=== PATIENT | female | born 1965 | race Caucasian/White ===

== ENCOUNTER 2018-05-12 09:02 | Day surgery (SDC) | payer OTHER ==
[~2018-05-12] VITALS: Ht 157.5 cm; Wt 113.4 kg
[~2018-05-12 09:02] MED LIST: CALCIUM + D3 E1 EACH PO; CHOLESTYRAMINE R5 GM MISC; DOXYCYCLINE HY100 M3 PO; FAMOTIDINE40 MG PO; GLUCOPHAGE XR500 MG PO; GLUCOSAMINE CO1 EACH PO; LISINOPRIL10 MG PO; LOSARTAN POTASS50 MG PO; METROCREAM45 GM TOP; OMEPRAZOLE20 M1 PO; TURMERIC500 M1 PO; ULTRAM50 MG PO
--- NOTE | 2018-05-12 10:30 | NUR ---
05/12/18 1030 Mireya Jon 1020- PT ARRIVES TO PACU AROUSABLE TO VOICE, FALLS INSTANTLY BACK TO SLEEP. RESP EVEN AND UNLABORED. OXYGEN SAT HIGH 90'S ON 3L VIA NC. 1023- OXYGEN TURNED OFF. OXYGEN SAT MID 90'S ON RA. RESP EVEN AND UNLABORED. 1026- PT'S SYSTOLIC BP 88, PT TURNED HERSELF TO HER BACK AND BP CUFF ADJUSTED. SYSTOLIC NOW IS 107. PT DENIES ANY DIZZINESS OR NAUSEA AT THIS TIME. PT INSTANTLY BACK TO SLEEP.
--- NOTE | 2018-05-13 06:22 | OR ---
[facility] [address], [place] [address] Signed DATE OF OPERATION: 05/12/2018 SURGEON: Karina Lopez MD PREOPERATIVE DIAGNOSES: 1. Mother with a history of colonic polyps in her 50s. 2. Anterior midline pedunculated external anal skin tags. POSTOPERATIVE DIAGNOSES: 1. Minimal to moderate sigmoid diverticulosis. 2. Anterior midline pedunculated external anal skin tags. 3. Sigmoid diverticulosis. PROCEDURES: 1. Colonoscopy without biopsy. 2. Excision of external anal skin tag. ESTIMATED BLOOD LOSS: None. INDICATIONS: Caridad is a 52-year-old female, who was asked to see me for a colonoscopy. Her mother had colonic polyps removed in her 50s and went every 5 years thereafter. Caridad had several colonoscopies when she was young because of abdominal pain following the of her son. They were all negative. She also mentioned the anterior midline external anal skin tag that is quite long and pedunculated and she wanted me to look at that and remove if I could. In the office, I gave her a pamphlet on colonoscopy and we looked at that together along with the risks and benefits. She also understands the need for IV conscious sedation. She had expressed understanding and wished to proceed. PROCEDURE NOTE: Caridad was taken into our endoscopy suite and placed in the left lateral decubitus position. She was given 6 mg of Versed and 125 mcg of fentanyl. A digital rectal exam was performed and sure enough she does have a 2 cm x 4 mm pedunculated skin tag in anterior midline. Otherwise, her sphincter tone was good. She had two tiny skin tags on the left side as well. After this, the adult colonoscope was introduced and advanced all the way around into the cecum under direct visualization of camera without difficulty. Her prep was good. The scope was slowly withdrawn. We found no pathology throughout the entire colon or rectum except for some very minimal sigmoid diverticulosis. We only saw few diverticula, but they were moderate in size. Rectum Electronically Signed By: KARINA LOPEZ MD 05/13/18 0622 PATIENT NAME: CARIDAD ANDREA OPERATIVE REPORT DATE OF : 69 REPORT #: [id number] PHYSICIAN: KARINA LOPEZ MD PCP: CARLITOS JAIME MD REPORT IS CONFIDENTIAL AND NOT TO BE RELEASED WITHOUT AUTHORIZATION [facility] [address], [place] [address] Signed was unremarkable. Upon retroflexion of the scope, there was no additional pathology noted above the anal canal. After this, the gas was suctioned out and colonoscope removed. We then injected 10 mL of 0.25% bupivacaine with epinephrine underneath her skin tags. We used our cautery to excise those three skin tags. The two or so small they simply vaporized with the cautery. The other we sent down to pathology for pathologic review. Caridad tolerated her procedure quite well. RECOMMENDATIONS: I will see Caridad back in my office in 7 to 10 days to review her results and the pathology for the skin tag. Karina Lopez MD ALB/MODL /[id number] cc: MD Selma Luo MD Malcolm Townsley, MD Copies: KARINA LOPEZ MD, PATRICIA J MD TOWNSLEY, MALCOLM MD ~ Electronically Signed By: KARINA LOPEZ MD 05/13/18 0622 PATIENT NAME: CARIDAD ANDREA OPERATIVE REPORT DATE OF : 69 REPORT #: [id number] PHYSICIAN: KARINA LOPEZ MD PCP: CARLITOS JAIME MD REPORT IS CONFIDENTIAL AND NOT TO BE RELEASED WITHOUT AUTHORIZATION
== END 2018-05-12 11:05 | disposition home or self-care (01) ==
LOC: OPS 09:02 → DS 09:02 → OPS 11:05
PROVIDERS: Colon & Rectal Surgery
PROC: 0DJD8ZZ Inspection of Lower Intestinal Tract, Via Natural or Artificial Opening Endoscopic (ICD-10-PCS; principal; 2018-05-12 10:30)
DX: K62.0 Anal polyp (principal); K64.4 Residual hemorrhoidal skin tags; K57.30 Diverticulosis of large intestine without perforation or abscess without bleeding; I10 Essential (primary) hypertension; K21.9 Gastro-esophageal reflux disease without esophagitis; E78.5 Hyperlipidemia, unspecified; E66.01 Morbid (severe) obesity due to excess calories; E11.9 Type 2 diabetes mellitus without complications; Z98.890 Other specified postprocedural states; Z83.71 Family history of colonic polyps; Z88.5 Allergy status to narcotic agent; Z79.899 Other long term (current) drug therapy; Z79.84 Long term (current) use of oral hypoglycemic drugs
CPT/HCPCS: 99153; G0500; J2250; J3010; J7120

== ENCOUNTER 2023-09-30 06:40 | Day surgery (SDC) | payer OTHER ==
[~2023-09-30] VITALS: Ht 160 cm; Wt 105.0 kg
[~2023-09-30 06:40] MED LIST changes: +CENTRUM SILVER1 EAC8 PO; +LACTATED RINGER'S 1,000 ML IV SCH; +METFORMIN HCL500 MG PO; +NEURONTIN100 MG PO; +OZEMPIC2 MG/0.75 SUB-Q; +PAXIL10 MG PO; +VITAMIN D325 MC2 PO; +VITAMIN E180 MG PO
[2023-09-30] MEDS ORDERED: HEParin SOD (PORCINE) 5,000 UNIT/0.5 ML SYR SUB-Q SCH (07:00)
[2023-09-30] MEDS ORDERED: CEFAZOLIN SODIUM 2 GM/20 ML SYR IV SCH (07:00)
[2023-09-30] MEDS ORDERED: LIDOCAINE HCL 1% 5 ML SDV INJ ONE (07:00)
[2023-09-30] MEDS ORDERED: IBLOOD GLUCOSE TEST STRIP 1 EA TEST VI PRN ×2 (07:00→09:00)
[2023-09-30 07:04] VITALS: BP 119/63
[2023-09-30] MEDS ORDERED: OXYBUTYNIN CHLO10 MG PO (07:10)
--- NOTE | 2023-09-30 08:03 | NUR ---
pt to nuc med via wheelchair.
[2023-09-30] MEDS ORDERED: propofoL 200 MG/20 ML VIAL ONE ×2 (08:48→12:24)
[2023-09-30] MEDS ORDERED: FAMOTIDINE 20 MG/ 2 ML VIAL ONE (08:48)
[2023-09-30] MEDS ORDERED: METOCLOPRAMIDE HCL 10 MG/2 ML SDV ONE (08:48)
[2023-09-30] MEDS ORDERED: ondansetron HCL 4 MG/2 ML VIAL ONE (08:48)
[2023-09-30] MEDS ORDERED: LACTATED RINGER'S 1,000 ML IV ONE ×2 (08:48→13:36)
[2023-09-30] MEDS ORDERED: fentaNYL citrate 100 MCG/2 ML VIAL ONE (08:48)
[2023-09-30] MEDS ORDERED: KETOROLAC TROMETHAMINE 30 MG/ML VIAL ONE (08:48)
[2023-09-30] MEDS ORDERED: MIDAZOLAM HCL 2 MG/2 ML VIAL ONE (08:48)
[2023-09-30] MEDS ORDERED: DEXAMETHASONE SOD PHOS 4 MG/ML VIAL ONE (08:48)
[2023-09-30] MEDS ORDERED: NALOXONE HCL 0.4 MG SYR IV PRN ×2 (09:00→14:15)
[2023-09-30] MEDS ORDERED: METOCLOPRAMIDE HCL 10 MG/2 ML SDV IV PRN (09:00)
[2023-09-30] MEDS ORDERED: fentaNYL citrate 50 MCG/ML SDV IV PRN (09:00)
[2023-09-30] MEDS ORDERED: PROCHLORPERAZINE EDISYLATE 10 MG/2 ML VIAL IV PRN (09:00)
[2023-09-30] MEDS ORDERED: ondansetron HCL 4 MG/2 ML VIAL IV PRN ×2 (09:00→14:15)
[2023-09-30] MEDS ORDERED: MEPERIDINE HCL 25 MG/1 ML VIAL IV PRN (09:00)
[2023-09-30] MEDS ORDERED: droPERidol 5 MG/2 ML VIAL IV PRN (09:00)
[2023-09-30] MEDS ORDERED: Methylene Blue 100 MG/10 ML SDV ONE (11:53)
[2023-09-30] MEDS ORDERED: SCOPOLAMINE 1 MG/3 DAYS PATCH 1 EACH TDSY ONE (12:25)
[2023-09-30] MEDS ORDERED: droPERidol 5 MG/2 ML VIAL ONE (13:31)
--- NOTE | 2023-09-30 14:03 | NUR ---
09/30/23 1403 Carmina Campbell 1351-PATIENT ARRIVED TO PACU ON 10L MASK ORAL AIRWAY IN PLACE PATIENT STARTING TO GAG EYES CLOSED MOVES RIGHT HAND ORAL AIRWAY REMOVED. PLACED ON 6L MASK RR EVEN. DRESSING TO LEFT BREAST CDI. SR. IVF INFUSING. 1403-PATIENT SLEEPING 6L MASK RR EVEN 99%
[2023-09-30] MEDS ORDERED: PERCOCET 7.5-31 EACH PO (14:13)
[2023-09-30] MEDS ORDERED: TYLENOL EXTRA500 MG PO (14:14)
[2023-09-30] MEDS ORDERED: IBUPROFEN 600 MG TAB PO PRN (14:15)
[2023-09-30] MEDS ORDERED: ACETAMINOPHEN 1,000 MG/100 ML VIAL IV ONE (14:15)
[2023-09-30] MEDS ORDERED: ACETAMINOPHEN 500 MG TAB PO PRN (14:15)
[2023-09-30] MEDS ORDERED: MOTRIN IB200 MG PO (14:15)
[2023-09-30] MEDS ORDERED: LACTATED RINGER'S 1,000 ML IV SCH (14:15)
[2023-09-30] MEDS ORDERED: OXYCODONE/APAP 7.5/325 TAB PO PRN (14:15)
--- NOTE | 2023-09-30 14:40 | NUR ---
PT ARRIVED BACK TO DAY SURGERY VIA STRETCHER. PT ORIENTED TO ROOM AND CALL LIGHT. PTS DRESSING TO LEFT BREAST C/D/I. RATING PAIN 4/10 AT THIS TIME. PTS AT BEDSIDE.
[2023-09-30 14:42] VITALS: BP 138/59
--- NOTE | 2023-09-30 14:45 | NUR ---
PT UP TO VOID. 400ML OF CLEAR YELLOW URINE. PT TOLERATED ACTIVITY WELL.
--- NOTE | 2023-09-30 15:14 | NUR ---
PT COMPLAINED OF PAIN IN LEFT BREAST. RATING PAIN 5/10 AT THIS TIME. GAVE 1 TAB PERCOCET 7.5/325 AT THIS TIME.
[2023-09-30 15:36] VITALS: BP 123/63
--- NOTE | 2023-09-30 15:39 | NUR ---
PT UP HAS NO COMPLAINTS OF NAUSEA AND REPORTS PAIN HAS DECREASED SINCE PAIN MEDICATION WAS GIVEN. PTS DRESSING IS C/D/I. PT READY TO DISCHARGE HOME. PT UP AND GETTING DRESSED WITH IN ROOM.
--- NOTE | 2023-10-02 12:49 | OR ---
[facility] [address] [place], [place] [address] Signed DATE OF OPERATION: 09/30/2023 SURGEON: Cassandra Sanchez MD PREOPERATIVE DIAGNOSES: 1. 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 2. Morbid obesity. POSTOPERATIVE DIAGNOSES: 1. 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 2. Morbid obesity. PROCEDURES: 1. Injection of methylene blue dye in periareolar area for left axillary sentinel lymph node biopsy. 2. Left image guided (VINCENZO hydraulic repairer) upper outer quadrant partial mastectomy. 3. Left deep axillary sentinel lymph node biopsy (x3). ANESTHESIA: General LMA; Cassandra Khan CRNA and local 10 mL of 0.25% Marcaine with epinephrine. INDICATION: This -rdjp-wks white woman is a patient of Dr. Aba Soler as well as Dr. Selma Nugent. She underwent screening mammogram where she was found to have a right-sided BI-RADS category 5 lesion and a left-sided abnormality with a group of microcalcifications not otherwise characterized. This was per Dr. Hyman. This was on August 03, 2023. Though the lesion on the right side was considered BI-RADS category 5. A biopsy was performed which did not confirm breast cancer. Had no evidence of atypia or malignancy was seen. Biopsy on the left side, however, did show a small focus of atypical ductal epithelium, which was very suspicious for invasive well-differentiated ductal carcinoma. An MRI was subsequently performed, which did not show any lesion suspicious on the right or left side. On the basis of the biopsies the apparent mammogram and the lack of findings on MRI, I have recommended excision of the left breast mass which is in the upper outer aspect, which is on the basis of the pathologist and the radiologist's interpretation of actual infiltrating ductal carcinoma. A plan for radiation therapy would be outlined if the pathology should confirm malignancy. Concurrent sentinel lymph node biopsies will be Electronically Signed By: CASSANDRA SANCHEZ MD 10/02/23 1249 PATIENT NAME: LILIANA RAMAN OPERATIVE REPORT DATE OF : 69 REPORT #: [id number] PHYSICIAN: CASSANDRA SANCHEZ MD PCP: ABA SOLER MD REPORT IS CONFIDENTIAL AND NOT TO BE RELEASED WITHOUT AUTHORIZATION [facility] [address] [place] [id number] Signed undertaken as well. As the lesion is not palpable, localization will be undertaken by VINCENZO hydraulic repairer approach and sentinel lymph nodes identified by methylene blue and radionuclide techniques. The patient and her understand the risk of bleeding, infection, failure of diagnosis, misdiagnosis, and need for other indicated procedures and wished to proceed as we have described. FINDINGS: The VINCENZO hydraulic repairer implement was in the central portion of the abnormal tissue in the upper outer aspect of the left breast. Once excised, the specimen radiograph confirmed the localizing implement to be in the central portion of the excised breast. The parenchyma itself was somewhat granular in texture. Excision was taken down to the pectoralis fascia and was clinically negative throughout. Orientation of the specimen showed a short stitch superior and a long stitch lateral. As regards sentinel lymph nodes, there was good uptake of radionuclide and dye. Three independent sentinel lymph nodes were identified and excised. There were no other sentinel nodes identified. PROCEDURE IN DETAIL: The patient was received from the radiology suite, having undergone radionuclide injection in the left periareolar area. She was taken to the operating room, given a general LMA type anesthetic. Preoperative antibiotics were given. Sequential compression device stockings applied and heparin subcutaneously administered. The left breast was prepared with a chlorhexidine solution after injecting 1 mL of methylene blue dye in the left periareolar area in the subepithelial layer. After sterile draping interrogation of the left axilla with a C-Trak gamma probe was undertaken and area of maximal uptake easily identified. A transverse incision was made. Dissection was carried through the subcutaneous tissue of the axilla. Due to her morbid obesity, a fair amount of fat was transected to get to the axillary contents proper. With the aid of methylene blue dye and a probe itself, three separate lymph nodes were excised completely and passed for pathology. Additional interrogation of the axilla showed no significant uptake of radionuclide and I saw no methylene blue dye laden lymph nodes. The wound was then packed with gauze. Attention was turned to excision of the primary tumor in the upper outer aspect of the left breast. Using the VINCENZO hydraulic repairer probe, the area of maximal uptake was identified in the upper outer aspect of the left breast. An incision was made somewhat inferior medial to the axillary incision and dissection carried through the subcutaneous tissue. With episodic reference of the VINCENZO hydraulic repairer probe the area in question was well identified. Using electrocautery, wide resection was undertaken down to and including Electronically Signed By: CASSANDRA SANCHEZ MD 10/02/23 1249 PATIENT NAME: LILIANA RAMAN OPERATIVE REPORT DATE OF : 69 REPORT #: [id number] PHYSICIAN: CASSANDRA SANCHEZ MD PCP: ABA SOLER MD REPORT IS CONFIDENTIAL AND NOT TO BE RELEASED WITHOUT AUTHORIZATION [address] [place], [place] [address] Signed the pectoralis fascia. Once excised, the wound was packed and the specimen marked with a short stitch superior, long stitch lateral and specimen was sent for specimen radiograph. Radiograph did confirm the VINCENZO hydraulic repairer implement in the central portion of the excision with widely negative margins by clinical criteria. Irrigation was undertaken in the biopsy cavity with sterile water and hemostasis assured with electrocautery. Small clips were applied to the wound cavity for future reference for possible radiation therapy anticipated in the future. The breast wound was then closed with interrupted 2-0 Vicryl obliterating the space. An additional segment of skin was excised from the superior aspect of the incision for cosmetic benefit. Skin was then closed with running subcuticular 3-0 Vicryl. Gauze was withdrawn from the axilla. By this point, the specimen radiograph confirmed the VINCENZO hydraulic repairer implement to be in the excised specimen as was quite plain based on our own review of the x-ray. Irrigation was undertaken. There was no sign of bleeding or other problem. The wound was closed in layers with interrupted 2-0 Vicryl and running subcuticular 3-0 Vicryl for the skin. Steri-Strips were applied to both wounds as was an Acticoat dressing. 10 mL of 0.25% Marcaine with epinephrine had been injected into the incision sites prior to closure is noted. The patient was extubated and taken to recovery room in good condition having suffered no complications. Sponge, needle, and instrument counts reported as correct x3. MD HERBIE Boothe/ALEJANDRA /[id number] cc: MD Selma Hendricks MD Copies: ABA SOLER MD, PATRICIA J MD ~ Electronically Signed By: CASSANDRA SANCHEZ MD 10/02/23 1249 PATIENT NAME: LILIANA RAMAN OPERATIVE REPORT DATE OF : 69 REPORT #: [id number] PHYSICIAN: CASSANDRA SANCHEZ MD PCP: ABA SOLER MD REPORT IS CONFIDENTIAL AND NOT TO BE RELEASED WITHOUT AUTHORIZATION
--- NOTE | 2023-10-06 18:30 | PATH ---
[facility] [address] [place], [place] [address] Signed SPECIMEN(S): A LEFT BREAST SENTINEL LYMPH NODE #1 SPECIMEN(S): B LEFT BREAST SENTINEL LYMPH NODE #2 SPECIMEN(S): C LEFT BREAST SENTINEL LYMPH NODE #3 SPECIMEN(S): D LEFT UPPER OUTER QUADRANT BREAST SPECIMEN(S): E ADDITIONAL LEFT BREAST SKIN SPECIMEN SOURCE: A. LEFT BREAST SENTINEL LYMPH NODE #1 B. LEFT BREAST SENTINEL LYMPH NODE #2 C. LEFT BREAST SENTINEL LYMPH NODE #3 D. LEFT UPPER OUTER QUADRANT BREAST E. ADDITIONAL LEFT BREAST SKIN CLINICAL HISTORY: Left breast ductal hyperplasia. FINAL PATHOLOGIC DIAGNOSIS: A. Left breast sentinel lymph node #1: - One lymph node, negative for metastatic carcinoma (0/1). B. Left breast sentinel lymph node #2: - One lymph node, negative for metastatic carcinoma (0/1). C. Left breast sentinel lymph node #3: - One lymph node, negative for metastatic carcinoma (0/1). D. Left upper outer quadrant breast, lumpectomy: - Extensive biopsy site changes with adjacent fibrocystic changes, intraductal papillomatosis, atypical duct hyperplasia, and duct hyperplasia of the usual type. - Atypical duct hyperplasia is widely free at the inked surgical margins. - Microcalcifications are present in atypical duct hyperplasia. - Biopsy site changes. E. Additional left breast skin: - Benign skin, negative for evidence of malignancy. COMMENT: The history of ADH with a focus suspicious for invasive carcinoma is noted. There is no evidence of carcinoma on these sections. As part of [facility]' Quality Improvement Program, this case was reviewed by another member of our pathology staff. SILVIA:PRICE:lucrecia MICROSCOPIC EXAMINATION: PATIENT NAME: LILIANA RAMAN PATHOLOGY DATE OF : 69 REPORT #: [id number] PHYSICIAN: SARITHA PATHOLOGY PCP: CARLITOS JAIME MD REPORT IS CONFIDENTIAL AND NOT TO BE RELEASED WITHOUT AUTHORIZATION [facility] [address] [place], [place] [address] Signed Histologic sections of all submitted blocks are examined by light microscopy. These findings, together with the gross examination, support the pathologic diagnosis. Immunostains are performed with appropriate controls on block D5 and show the following: - CK 5/6: Negative within the area of concern. - Smooth muscle myosin: Positive within the area of concern. GROSS DESCRIPTION: A. The specimen, labeled and designated "Dayana Raman, " and designated on the requisition "SLN #1," is received in formalin and consists of 2.0 x 1.6 x 0.6 cm portion of yellow-marsh adipose tissue that upon dissection reveals one possible lymph node with a blue dye discoloration that is 0.7 cm in greatest dimension. The lymph node is bisected and entirely submitted in cassette A1. Only adipose tissue remains within the container. B. The specimen, labeled and designated "Kyle Dayana, and designated on the requisition "SLN #2," is received in formalin and consists of 3.2 x 2.0 x 1 0.6 cm portion of yellow-marsh adipose tissue with black suture that upon sectioning reveals one possible lymph node that is 0.6 cm in greatest dimension. The lymph node is bisected and entirely submitted in cassette B1. Only adipose tissue remains within the container. C. The specimen, labeled and designated "Kyle Dayana, " and designated on the requisition "SLN #3," is received in formalin and consists of 3.7 x 2.5 x 1.6 cm portion of yellow-marsh adipose tissue that upon dissection reveals one possible lymph node that is 2.5 cm in greatest dimension. The lymph node has a blue dye discoloration, is serially sectioned and entirely submitted in cassettes C1-C5. Only adipose tissue remains within the container. D. The specimen, labeled and designated "Dayana Raman, " and designated on the requisition "left upper outer quadrant breast tissue," is received in formalin and consists of 82 gram oriented portion of yellow-marsh fibroadipose tissue that is 8.4 x 7.5 x 3.6 cm. The sutures are arbitrarily designated at the time of grossing. A short suture is present and identifies the superior margin; a long suture identifies the lateral margin. The specimen is previously inked as follows: superior - blue; inferior - green; medial - red; lateral - orange; anterior - yellow; and posterior - black. The specimen is serially sectioned from anterior to posterior into 14 slices revealing a 1.4 PATIENT NAME: LILIANA RAMAN PATHOLOGY DATE OF : 69 REPORT #: [id number] PHYSICIAN: SARITHA PATHOLOGY PCP: CARLITOS JAIME MD REPORT IS CONFIDENTIAL AND NOT TO BE RELEASED WITHOUT AUTHORIZATION [facility] [address] [place] [id number] Signed x 1.2 x 1.0 cm biopsy cavity in slices 7-9 containing a metallic manager people detector. The biopsy cavity is 3.4 cm from the anterior soft tissue margin, 4.1 cm from the posterior soft tissue margin, 4.1 cm from the superior soft tissue margin, 3.7 cm from the inferior soft tissue margin, 0.7 cm from the medial soft tissue margin, and 0.8 cm from the lateral soft tissue margin. Approximately 90% of the remaining specimen is a yellow-marsh greasy adipose tissue and 10% is a uhrzx-nep-rmud rubbery fibrous tissue. The biopsy cavity and surrounding fibroadipose tissue is entirely submitted for histologic examination. Department Director sections are submitted in 13 cassettes. Cassette Summary: (D1) slice one, anterior soft tissue resection margin, perpendicular (D2) fibroadipose tissue anterior to biopsy cavity, slice six (D3-D4) biopsy cavity with surrounding fibroadipose tissue, slice seven (D5-D6) biopsy cavity with surrounding fibroadipose tissue, slice eight (D7-D8) biopsy cavity with surrounding fibroadipose tissue, slice nine (D9-D10) fibroadipose tissue posterior to biopsy cavity, slice 10 (D11) superior soft tissue resection margin, perpendicular (D12) inferior soft tissue resection margin, perpendicular (D13) slice 14, posterior soft tissue resection margin, perpendicular Cold ischemia time: Insufficient data to calculate. Approximate Formalin time: 24 hours. E. The specimen, labeled and designated "Quinault, M, " and designated on the requisition "additional left breast skin," is received in formalin and consists of a 4.1 x 1.5 x 0.9 cm unoriented ellipse of skin. The skin surface is pale pink and wrinkled. The specimen is inked, sectioned and entirely submitted in (E1-E2). FB (under the direct supervision of a pathologist) The Gross Description was prepared using a voice recognition system. The report was reviewed for accuracy; however, sound-alike word errors, addition and/or deletions may occur. If there is any question about this report, please contact Client Services. ADDITIONAL NOTES: Immunohistochemical and/or in situ hybridization studies if performed in this case included appropriate positive controls that reacted as expected. This test was developed and its performance characteristics determined by [facility]. It has not been cleared or approved by the U.S. Food and Drug Administration. The FDA has determined that such clearance or approval is not PATIENT NAME: LILIANA RAMAN PATHOLOGY DATE OF : 69 REPORT #: [id number] PHYSICIAN: SARITHA NOLAN PCP: CARLITOS JAIME MD REPORT IS CONFIDENTIAL AND NOT TO BE RELEASED WITHOUT AUTHORIZATION [address] [address] Signed necessary. This test is used for clinical purposes. It should not be regarded as investigational or for research. [facility] is certified under the Clinical Laboratory Improvement Amendments of 1988 (CLIA) as qualified to perform high complexity clinical laboratory testing. PERFORMING LABORATORY: Technical component was performed by [facility], [address] [place] [id number] (CLIA# [id number]). Professional interpretation was performed by [email or web address], [address] [place] [id number] (CLIA#: [id number]). Diagnostician: Yinka Vergara MD Pathologist Electronically Signed 10/06/2023 Copies: ~ PATIENT NAME: LILIANA RAMAN PATHOLOGY DATE OF : 69 REPORT #: [id number] PHYSICIAN: SARITHA PATHOLOGY PCP: CARLITOS JAIME MD REPORT IS CONFIDENTIAL AND NOT TO BE RELEASED WITHOUT AUTHORIZATION
== END 2023-09-30 15:50 | disposition home or self-care (01) ==
LOC: DS 06:40
PROVIDERS: ATTEND Surgery
PROC: 0HBU0ZZ Excision of Left Breast, Open Approach (ICD-10-PCS; principal; 2023-09-30 11:30)
PROC: 07B60ZX Excision of Left Axillary Lymphatic, Open Approach, Diagnostic (ICD-10-PCS; 2023-09-30 11:30)
DX: N60.92 Unspecified benign mammary dysplasia of left breast (principal); D24.2 Benign neoplasm of left breast; N60.12 Diffuse cystic mastopathy of left breast; E66.01 Morbid (severe) obesity due to excess calories; Z79.84 Long term (current) use of oral hypoglycemic drugs; Z79.899 Other long term (current) drug therapy; I10 Essential (primary) hypertension
CPT/HCPCS: 00400; J0131; J0690; J1100; J1644; J1790; J1885; J2250; J2405; J2704; J2765; J3010; J3490; J7121